=== PATIENT | male | born 2000 | race African-American/Black ===

== ENCOUNTER 2025-02-28 13:56 | Emergency (ER) | payer SELFPAY ==
[2025-02-28] VITALS (7 sets, daily range): BP systolic 123–149; BP diastolic 68–74; PULSE 72–79; RESP 16–18; TEMP 36.5; O2SAT 100
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
[2025-02-28] MEDS: CYCLOBENZAPRINE HCL 10 MG TABLET PO (16:51)
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
[2025-02-28] MEDS: LACTATED RINGERS 1,000 ML 999 ML IV CONT (17:01)
[2025-02-28] MEDS: HYDROmorphone HCL INJ (*CRX) 1 MG/ML SYR 0.5 MG IV PUSH (17:04)
[2025-02-28 17:07] LABS: Add Urine Microscopic? NO; Appearance Urine Clear (Clear); Glucose Urine UA Negative (Negative); Leukocyte Esterase Ur Negative LEU/UL (Negative); Nitrate Urine Negative (Negative); Specific Grav Ur 1.020 (1.001-1.035)
[2025-02-28 17:07] LABS: Hematocrit 49.0 % (42.0-52.0); Hemoglobin 15.8 g/dL (14.0-18.0); Immature Granulocyte Percent A 0.2 % (0-0.5); Lymphocytes Absolute Auto 2.40 K/mm3 (0.9-3.2); Mean Corpuscular HGB Conc 32.2 g/dl (32-36); Mean Corpuscular Hemoglobin 27.1 pg (26-34); Mean Corpuscular Volume 84.2 fl (80-100); Nucleated Red Blood Cells Absolute Auto 0.000 K/mm3 (0.0-0.012); Nucleated Red Blood Cells Perc 0.0 % (0.0-0.2); Platelet Count Result 273 k/mm3 (150-375); Red Blood Count 5.82 M/mm3 (4.6-6.20); White Blood Count 9.6 K/mm3 (4.5-10.0)
[2025-02-28 17:17] LABS: Alanine Aminotransferase 20 U/L (6-50); Albumin Level 4.6 g/dL (3.5-5.1); Alkaline Phosphatase 89 U/L (38-126); Anion Gap 11 mmol/L (4-12); Aspartate Amino Transferase 27 U/L (17-59); Bilirubin,Total 0.4 mg/dL (0.2-1.3); Blood Urea Nitrogen 12 mg/dL (9-20); Calcium 9.0 mg/dL (8.4-10.2); Carbon Dioxide 26 mmol/L (22-30); Chloride 100 mmol/L (98-107); Estimated CRCL calculation 146 ml/min; Estimated Glomerular Filt Rate > 60; Glucose 95 mg/dL (65-110); Potassium 3.8 mmol/L (3.4-5.0); Sodium 137 mmol/L (137-145); Total Protein 8.3 g/dL (6.3-8.2)
[2025-02-28 17:22] LABS: INR 1.0; Prothrombin Time 13.1 Seconds (11.1-14.7)
[2025-02-28 17:23] LABS: Partial Thromboplastin Time 30.8 Seconds (22.3-36.8)
== END 2025-02-28 19:40 | disposition home or self-care (01) ==
PROVIDERS: Emergency Provider Emergency Medicine
DX: S39.91XA Unspecified injury of abdomen, initial encounter (principal); R19.03 Right lower quadrant abdominal swelling, mass and lump; V64 Occupant of heavy transport vehicle injured in collision with heavy transport vehicle or bus
CPT/HCPCS: 36415; 74177; 80053; 81003; 85025; 85610; 85730; 96361; 96374; 99284; A9270; J1171; J7120; Q9967